=== PATIENT | male | born 1975 | race Caucasian/White ===

== ENCOUNTER 2017-06-05 10:27 | Day surgery (SDC) | payer OTHER ==
[2017-06-05] MEDS ORDERED: ceFAZolin 2 GM/DEXTROSE 100 ML IV ONE (10:33)
[2017-06-05] MEDS ORDERED: MIDAZOLAM 2 MG/2 ML VIAL IVP ONE (10:51)
--- NOTE | 2017-06-05 10:52 | PDANEPAE ---
ANE History of Present Illness inguinal hernia ANE Past Medical History - Cardiovascular History Hx Hypertension: No Hx Arrhythmias: No Hx Chest Pain: No Hx Coronary Artery / Peripheral Vascular Disease: No Hx CHF / Valvular Disease: No Hx Palpitations: No - Pulmonary History Hx COPD: No Hx Asthma/Reactive Airway Disease: No Hx Recent Upper Respiratory Infection: No Hx Oxygen in Use at Home: No Hx Sleep Apnea: No Sleep Apnea Screening Result - Last Documented: Negative - Neurologic History Hx Cerebrovascular Accident: No Hx Seizures: No Hx Dementia: No - Endocrine History Hx Diabetes: No Hypothyroid: No Hyperthyroid: No Obesity: no - Renal History Hx Renal Disorders: No - Liver History Hx Hepatic Disorders: No - Neurological & Psychiatric Hx Hx Neurological and Psychiatric Disorders: No - Cancer History Hx Cancer: No - Congenital Disorder History Hx Congenital Disorders: No - GI History Hx Gastrointestinal Disorders: No - Other Health History Other Health History: L inguinal hernia allergies:cats,dogs,trees - Chronic Pain History Chronic Pain: No - Surgical History Prior Surgeries: Lap R inguinal hernia~1996. pilonidal cyst. wisdom teeth extraction ANE Review of Systems Review of Systems: - Exercise capacity METS (RN): 5 METS ANE Patient History - Allergies Allergies/Adverse Reactions: No Known Allergies Allergy (Unverified 05/29/17 14:01) - Home Medications Home Medications: Cialis 05/29/17 [Last Taken Unknown] Claritin 05/29/17 [Last Taken Unknown] Flonase Nasal [place] 05/29/17 [Last Taken Unknown] - Anes Hx Anes Hx: no prior problems - Smoking Hx Smoking Status: Never smoked - Alcohol Use Alcohol Use: Occasionally - Family Anes Hx Family Anes Hx: neg - N/A ANE Labs/Vital Signs - Vital Signs Height: 177.8 cm Weight: 63.503 kg ANE Physical Exam - Airway Neck exam: FROM Mallampati Score: Class 1 Mouth exam: normal dental/mouth exam - Pulmonary Pulmonary: no respiratory distress, no rales or rhonchi, clear to auscultation - Cardiovascular Cardiovascular: regular rate and rhythym, no murmur, rub, or gallop - ASA Status ASA Status: I ANE Anesthesia Plan Anesthesia Plan: general endotracheal anesthesia
--- NOTE | 2017-06-05 11:00 | PDGENHP ---
History & Physical Chief Complaint: Left inguinal hernia History of Present Illness: 3 month h/o left groin bulge. No right-sided symptoms. Nino po normally. Pertinent Past, Social, Family History: PMHx: asthma. PSHx: lap RIHR, pilonidal cyst. Meds: flonase, proair. NKDA Relevant Physical Exam: Alert, NAD. Mod LIH Cardiorespiratory Assessment: RRR. CTA B. Risks/benefits of robotic/open LIHR reviewed, questions answered.
[2017-06-05] MEDS ORDERED: BUPIVACAINE 0.5% 30 ML SDV ONE (11:14)
[2017-06-05] MEDS ORDERED: LR 1,000 ML IV ONE (11:15)
[2017-06-05] MEDS ORDERED: PROPOFOL 200 MG/20 ML VIAL ONE (11:34)
[2017-06-05] MEDS ORDERED: REMIFENTANIL HCL 1 MG VIAL ONE (11:34)
[2017-06-05] MEDS ORDERED: DEXAMETHASONE 4 MG/ML VIAL ONE (11:35)
[2017-06-05] MEDS ORDERED: ROCURONIUM 50 MG/5 ML VIAL ONE (11:35)
[2017-06-05] MEDS ORDERED: PROPOFOL/EMULSION 500 MG/50 ML BOTTLE IV ONE (11:35)
[2017-06-05] MEDS ORDERED: KETOROLAC 30 MG/1 ML SDV ONE (11:35)
[2017-06-05] MEDS ORDERED: ONDANSETRON 4 MG/2 ML VIAL ONE (11:35)
[2017-06-05] MEDS ORDERED: fentaNYL 100 MCG/2 ML INJ ONE (11:35)
[2017-06-05] MEDS ORDERED: LIDOCAINE 2% 5 ML SDV ONE (11:36)
[2017-06-05] MEDS ORDERED: PHENYLEPHRINE HCL 100 MCG/ML SYR ONE (11:58)
[2017-06-05] MEDS ORDERED: MEPERIDINE 25 MG/ML SYR IVP PRN (12:19)
[2017-06-05] MEDS ORDERED: fentaNYL 100 MCG/2 ML INJ IVP PRN (12:19)
[2017-06-05] MEDS ORDERED: ACETAMINOPHEN 500 MG TAB PO PRN (12:19)
[2017-06-05] MEDS ORDERED: OXYCODONE/APAP 5/325 TAB PO PRN (12:19)
[2017-06-05] MEDS ORDERED: ONDANSETRON 4 MG/2 ML VIAL IVP PRN (12:19)
[2017-06-05] MEDS ORDERED: LR 500 ML IV PRN (12:19)
[2017-06-05] MEDS ORDERED: PROMETHAZINE HCL 25 MG/ML INJ IVP PRN (12:19)
[2017-06-05] MEDS ORDERED: HYDROCODONE/APAP 5/325 TAB PO PRN (12:19)
[2017-06-05] MEDS ORDERED: NALOXONE HCL 0.4 MG/ML INJ IVP PRN (12:19)
[2017-06-05] MEDS ORDERED: SUGAMMADEX SODIUM 200 MG/2 ML VIAL IVP ONE (12:54)
--- NOTE | 2017-06-05 13:07 | POSTOPPROG ---
Post Op Note Date of Operation: 06/05/17 Surgeon: Jim Shannon Sheet Finisher: Kaylie Herbert Anesthesiologist: Dr. Decker Anesthesia: GET(General Endotracheal) Pre-op Diagnosis: Left inguinal hernia Post-op Diagnosis: same Procedure: Robotic-assisted LIHR Inf/Abcess present in the surg proc area at time of surgery?: No EBL: Minimal
[2017-06-05 13:21] VITALS: PULSE 57; TEMP 97.7; O2SAT 100
--- NOTE | 2017-06-05 13:24 | POSTANESTH ---
Post Anesthetic Evaluation Cardiovascular Status: Normal, Stable Respiratory Status: Normal, Stable Level of Consciousness/Mental Status: Can Participate in Eval Pain Control: Adequate, Prn Tx Ordered Nausea/Vomiting Control: Adequate, Prn Tx Ordered Complications Possibly Related to Anesthesia: None Noted (pt developed moderate rash and hives b/l hands, face, neck, upper chest, upper abdomen. mild pruritus only at L hip area. otherwise stable)
[2017-06-05 13:29] VITALS: BP 112/79; RESP 14
--- NOTE | 2017-06-05 14:06 | GOP ---
[f rep st] OPERATIVE REPORT DATE OF OPERATION: 06/05/2017 SURGEON: Kamran Shannon MD CUSTOMER EXPERIENCE STRATEGIST: Kaylie Herbert CFA, whose presence was requested by me and medically necessary for the safe and timely completion of the case. ANESTHESIA: General endotracheal anesthesia per Dr. Decker. PREOPERATIVE DIAGNOSIS: Left inguinal hernia. POSTOPERATIVE DIAGNOSIS: Left inguinal hernia. PROCEDURE PERFORMED: Robotic left inguinal hernia repair. FINDINGS: The patient had a moderate to large direct hernia with a small lipoma on the left. ESTIMATED BLOOD LOSS: 20 cc. INDICATIONS: A 41-year-old male with a history of left groin bulge. The patient had a prior laparoscopic right inguinal hernia repair. Risks and benefits of the procedure were discussed with the patient and his family, their questions were answered. They wished to proceed. DESCRIPTION OF PROCEDURE: With the patient in the supine position, after induction of adequate general endotracheal anesthesia, patient was prepped and draped in standard surgical fashion. 0.5% Marcaine was injected throughout the infraumbilical area for local anesthesia. An 8 mm incision was made with #15 blade and carried down, and the abdominal wall was elevated. A Veress needle was inserted and, after noting proper pressures, the abdomen was insufflated with carbon dioxide. An 8 mm port was placed, and a camera followed. There was no apparent damage from trocar placement. Two more 8 mm ports were placed on either mid abdomen. These were placed under direct vision after injecting 0.5% Marcaine for local anesthesia. The robot was then docked. The scissors and cautery were used to take down the peritoneal plane on the left , where a large direct hernia was noted. Dissection was carefully carried over the epigastrics to the lateral aspect. Blunt dissection was then used to dissect the preperitoneal plane fully. The vas and vessels were identified and preserved. The area was completely dissected, and a left-sided ProGrip mesh was placed. This was unfurled and placed in the preperitoneal space, and oriented properly. This seemed to cover the direct, indirect, and femoral space as well. Due to the large size of the direct defect, fixation sutures of 2-0 Vicryl were placed in Marvin's ligament and at the superior aspect of the defect. The epigastrics were carefully avoided. This ensured adequate stabilization of the mesh. The peritoneum was then closed using a 3-0 V-Loc in a running fashion. The area was inspected and good hemostasis noted. No other lesions were identified. The right side was inspected and found to be without lesion. The trocars were then withdrawn under direct vision. Pneumoperitoneum was allowed to escape. The robot had been undocked prior to this. The wounds were irrigated. The skin at all sites was closed with 4-0 Monocryl subcuticular stitch. Wounds were dressed with Dermabond. The patient was then extubated and taken to PACU in stable condition. COMPLICATIONS: None. DRAINS: None. /[id number]/MODL MTDD
== END 2017-06-05 15:02 | disposition home or self-care (01) ==
LOC: FSGY 10:27
PROVIDERS: ATTEND Surgery
PROC: 0YU64JZ Supplement Left Inguinal Region with Synthetic Substitute, Percutaneous Endoscopic Approach (ICD-10-PCS; principal; 2017-06-05 11:30)
PROC: 8E0W4CZ Robotic Assisted Procedure of Trunk Region, Percutaneous Endoscopic Approach (ICD-10-PCS; principal; 2017-06-05 11:30)
DX: K40.90 Unilateral inguinal hernia, without obstruction or gangrene, not specified as recurrent (principal); J45.909 Unspecified asthma, uncomplicated
CPT/HCPCS: C1781; J0690; J1100; J1885; J2250; J2370; J2405; J2704; J3010